=== PATIENT | female | born 1945 | race Caucasian/White ===

== ENCOUNTER 2022-03-02 10:01 | Outpatient (CLI) | payer MEDICARE ==
[2022-03-02] MEDS ORDERED: Iopamidol 300 61% 100 ML VIAL FS ONE (13:12)
== END 2022-03-02 10:02 | disposition home or self-care (01) ==
LOC: CSHCT 10:01
PROVIDERS: ATTEND Otolaryngology Otolaryngic Allergy
DX: C02.9 Malignant neoplasm of tongue, unspecified (principal); E04.2 Nontoxic multinodular goiter; Z97.2 Presence of dental prosthetic device (complete) (partial)
CPT/HCPCS: 70491; Q9967

== ENCOUNTER 2022-04-02 09:54 | Outpatient (CLI) | payer MEDICARE | END 2022-04-02 09:55 | disposition home or self-care (01) | LOC: CSHLAB 09:54 | PROVIDERS: ATTEND Otolaryngology Otolaryngic Allergy | DX: Z01.818 Encounter for other preprocedural examination (principal); Z20.822 Contact with and (suspected) exposure to COVID-19 | CPT/HCPCS: 87811; 93005; 93010 ==

== ENCOUNTER 2022-04-07 07:22 | Day surgery (SDC) | payer MEDICARE ==
[2022-04-03 12:15] VITALS: BMI 23.1
[2022-04-07 07:57] LABS: Hemoglobin 14.6 g/dL (12.0-15.5)
[2022-04-07 08:03] LABS: Anion Gap 13 mmol/L (10-20); BUN (Urea Nitrogen) 18 mg/dL (9.8-20.1); Calc. Creatinine Clearance 52 mL/min (70-130); Calcium 9.9 mg/dL (7.8-10.44); Carbon Dioxide 26 mmol/L (23-31); Chloride 106 mmol/L (98-107); Estimated GFR 66; Glucose 87 mg/dL (83-110); Potassium 4.2 mmol/L (3.5-5.1); Sodium 141 mmol/L (136-145)
[2022-04-07] MEDS ORDERED: Lidocaine 1% MPF 2 ML VIAL ONE (08:23)
[2022-04-07] MEDS ORDERED: Midazolam HCl 2 mg/2 ml Vial ONE (09:28)
[2022-04-07] MEDS ORDERED: Dexamethasone 20 MG/5 ML VIAL ONE (09:28)
[2022-04-07] MEDS ORDERED: Fentanyl 100 MCG/2 ML VIAL ONE ×2 (09:28→11:15)
[2022-04-07] MEDS ORDERED: PROPOFOL 20 ML ONE (09:28)
[2022-04-07] MEDS ORDERED: Ondansetron PF 4 MG/2 ML Vial ONE (09:28)
[2022-04-07] MEDS ORDERED: Lidocaine 1% PF 5 ML VIAL ONE (09:28)
[2022-04-07] MEDS ORDERED: Rocuronium Bromide 10 MG/ML (10ML VIAL) ONE (09:28)
[2022-04-07] MEDS ORDERED: SUGAMMADEX SODIUM 200 MG/2 ML VIAL ONE (09:29)
[2022-04-07] MEDS ORDERED: CEFAZOLIN 1 GM VIAL ONE (09:36)
== END 2022-04-07 12:10 | disposition home or self-care (01) ==
LOC: CSHSDC 07:22
PROVIDERS: ATTEND Otolaryngology Otolaryngic Allergy
PROC: 0CB7XZZ Excision of Tongue, External Approach (ICD-10-PCS; principal; 2022-04-07)
DX: C02.1 Malignant neoplasm of border of tongue (principal); J30.9 Allergic rhinitis, unspecified; H90.5 Unspecified sensorineural hearing loss; H69.80 Other specified disorders of Eustachian tube, unspecified ear; I10 Essential (primary) hypertension; Z79.899 Other long term (current) drug therapy; Z20.822 Contact with and (suspected) exposure to COVID-19
CPT/HCPCS: 80048; 85014; 85018; 88309; 88331; 88332; J0690; J1100; J2250; J2405; J2704; J3010

== ENCOUNTER 2022-06-05 17:00 | Inpatient (IN) | payer MEDICARE ==
[2022-06-09] MEDS ORDERED: CEFAZOLIN 1 GM VIAL ONE (10:16)
[2022-06-09] MEDS ORDERED: Ondansetron PF 4 MG/2 ML Vial ONE (10:20)
[2022-06-09] MEDS ORDERED: Fentanyl 250 MCG/5 ML VIAL ONE (10:20)
[2022-06-09] MEDS ORDERED: Dexamethasone 4 mg/ml Vial ONE (10:20)
[2022-06-09] MEDS ORDERED: PROPOFOL 20 ML ONE (10:20)
[2022-06-09] MEDS ORDERED: Rocuronium Bromide 10 MG/ML (10ML VIAL) ONE (10:20)
[2022-06-09] MEDS ORDERED: Midazolam HCl 2 mg/2 ml Vial ONE (10:20)
[2022-06-09] MEDS ORDERED: Lidocaine 2% PF 5 ML VIAL ONE (10:21)
[2022-06-09] MEDS ORDERED: Acetaminophen 325 MG TAB PO PRN (10:22)
[2022-06-09] MEDS ORDERED: Ondansetron ODT 4 MG TAB PO PRN (10:22)
[2022-06-09] MEDS ORDERED: Ondansetron PF 4 MG/2 ML Vial IVP PRN (10:22)
[2022-06-09] MEDS ORDERED: Phenylephrine 10 MG/ML VIAL ONE (10:23)
[2022-06-09] MEDS ORDERED: Polyethylene Glycol 3350 17 GM Packet PO PRN (10:28)
[2022-06-09] MEDS ORDERED: ALPRAZolam 0.25 MG TAB PO PRN (10:29)
[2022-06-09] MEDS ORDERED: Lidocaine 1% PF 5 ML VIAL ONE (11:05)
[2022-06-09] MEDS ORDERED: EPINEPHrine 1 MG/ML AMP ONE (11:05)
[2022-06-09] MEDS ORDERED: Mupirocin 2% Ointment 22 GM Tube ONE (11:11)
[2022-06-09] MEDS: Sodium Chloride 0.9% 1,000 ML IV SCH (13:00)
[2022-06-09 13:38] VITALS: BMI 26.7
[2022-06-09] MEDS: CEFAZOLIN 1 GM in Sodium Chloride 0.9% 100 ML IVPB SCH ×2 (14:11→21:12)
[2022-06-09] MEDS ORDERED: FLU VACC QS2022-23(65YR UP)/PF 240 MCG/0.7 ML SYRINGE IM ONE (14:15)
[2022-06-09] MEDS: Morphine 2 MG/ML VIAL SLOW IVP PRN ×2 (14:41→19:45)
[2022-06-09] MEDS: HYDROcodone/Acetaminophen 5/325 mg Tablet PO PRN (21:15)
[2022-06-10] MEDS: HYDROcodone/Acetaminophen 5/325 mg Tablet PO PRN ×3 (02:35→22:54)
[2022-06-10 04:17] LABS: #Monocytes 0.4 10x3/uL (0.0-1.1); #Neutrophils 8.6 10x3/uL (1.5-8.4); %Basophils 0.1 % (0.0-2.0); %Lymphocytes 6.1 % (18.0-47.0); %Monocytes 4.3 % (0.0-10.0); %Neutrophils 89.3 % (40.0-75.0); Hemoglobin 12.7 g/dL (12.0-15.5); Mean Corpuscular HGB CONC 34.9 g/dL (32.0-36.0); Mean Corpuscular Hemoglobin 31.1 pg (27.0-33.0); Mean Platelet Volume 10.7 fl (7.4-10.4); Platelet Count 243 10x3/uL (150-450); RBC Distribution Width 12.3 % (11.5-14.5); Red Blood Cell (RBC) Count 4.09 10x6/uL (3.90-5.03); White Blood Cell (WBC) Count 9.6 10x3/uL (3.5-10.5)
[2022-06-10] MEDS: Sodium Chloride 0.9% 1,000 ML IV SCH ×2 (04:48→19:58)
[2022-06-10] MEDS: CEFAZOLIN 1 GM in Sodium Chloride 0.9% 100 ML IVPB SCH ×3 (06:01→22:34)
[2022-06-10] MEDS: Amlodipine 5 MG TAB PO SCH (07:53)
[2022-06-10] MEDS: Cholecalciferol 1,000 UNITS (25 MCG) TAB PO SCH (07:54)
[2022-06-10] MEDS: Lisinopril 20 MG TAB PO SCH (07:54)
[2022-06-10] MEDS: Rosuvastatin 10 MG TAB PO SCH (07:54)
[2022-06-11] MEDS: CEFAZOLIN 1 GM in Sodium Chloride 0.9% 100 ML IVPB SCH ×2 (05:03→15:52)
[2022-06-11] MEDS: HYDROcodone/Acetaminophen 5/325 mg Tablet PO PRN ×4 (10:15→20:07)
[2022-06-11] MEDS: Amlodipine 5 MG TAB PO SCH (10:17)
[2022-06-11] MEDS: Rosuvastatin 10 MG TAB PO SCH (10:17)
[2022-06-11] MEDS: Lisinopril 20 MG TAB PO SCH (10:17)
[2022-06-11] MEDS: Cholecalciferol 1,000 UNITS (25 MCG) TAB PO SCH (10:18)
[2022-06-11] MEDS: Sodium Chloride 0.9% 1,000 ML IV SCH (10:18)
[2022-06-12] MEDS: HYDROcodone/Acetaminophen 5/325 mg Tablet PO PRN ×2 (01:03→08:47)
[2022-06-12 08:15] VITALS: TEMP 98.7
[2022-06-12] MEDS: Lisinopril 20 MG TAB PO SCH (08:46)
[2022-06-12] MEDS: Cholecalciferol 1,000 UNITS (25 MCG) TAB PO SCH (08:46)
[2022-06-12] MEDS: Amlodipine 5 MG TAB PO SCH (08:46)
[2022-06-12] MEDS: Rosuvastatin 10 MG TAB PO SCH (08:46)
[2022-06-12 10:24] VITALS: BP 152/74
== END 2022-06-12 10:27 | disposition home or self-care (01) | DRG 822 ==
LOC: CSHERHOLD 06-09 07:49 → CSHIMCU 06-09 13:33 → EDSTATUS 06-09 17:00 → CSHTELE 06-10 11:08
PROVIDERS: ADMIT Otolaryngology Otolaryngic Allergy; ATTEND Otolaryngology Otolaryngic Allergy
PROC: 07T20ZZ Resection of Left Neck Lymphatic, Open Approach (ICD-10-PCS; principal; 2022-06-09)
DX: C77.0 Secondary and unspecified malignant neoplasm of lymph nodes of head, face and neck (principal); C02.9 Malignant neoplasm of tongue, unspecified; Z79.899 Other long term (current) drug therapy; Z20.822 Contact with and (suspected) exposure to COVID-19
CPT/HCPCS: 36415; 85025; 87811; 88307; 94760; J0171; J0690; J1100; J2250; J2270; J2370; J2405; J2704; J3010; J3490; J7050

== ENCOUNTER 2022-10-05 14:22 | Outpatient (CLI) | payer MEDICARE | END 2022-10-05 14:23 | disposition home or self-care (01) | LOC: CSHMAMMO 14:22 | PROVIDERS: ATTEND Internal Medicine | DX: Z12.31 Encounter for screening mammogram for malignant neoplasm of breast (principal); Z13.820 Encounter for screening for osteoporosis; M81.0 Age-related osteoporosis without current pathological fracture; M85.851 Other specified disorders of bone density and structure, right thigh; M85.852 Other specified disorders of bone density and structure, left thigh; Z78.0 Asymptomatic menopausal state | CPT/HCPCS: 77063; 77067; 77080 ==